=== PATIENT | male | born 1970 | race Caucasian/White ===

== ENCOUNTER 2018-09-28 18:15 | Outpatient (CLI) | payer MEDICARE, OTHER | END 2018-09-28 18:16 | disposition home or self-care (01) | LOC: DI 18:15 | PROVIDERS: ATTEND General Practice | DX: M54.12 Radiculopathy, cervical region (principal); Z53.9 Procedure and treatment not carried out, unspecified reason ==

== ENCOUNTER 2018-09-29 18:13 | Outpatient (CLI) | payer MEDICARE, OTHER ==
--- NOTE | 2018-09-29 22:04 | MRI Report ---
Reason: RADICULOPATHY, CERVICAL REGION Procedure Date: 09/29/2018 Accession Number: [id number] / [id number] Procedure: MRI - Cervical Spine W/O CPT Code: FULL RESULT: EXAM: MRI CERVICAL SPINE WITHOUT CONTRAST EXAM DATE: 09/29/2018 07:10 PM. CLINICAL HISTORY: Radiculopathy, cervical region. COMPARISONS: None. TECHNIQUE: Multiplanar, multisequence T1-weighted and fluid-sensitive sequences of the cervical spine without contrast. Other: None. FINDINGS: There is a 1 mm retrolisthesis of C3 on C4. There is desiccation of the disk spaces throughout the cervical spine. There are normal signal intensities demonstrated throughout the cervical spinal cord. There is a moderate decrease in the intervertebral disk space height at C4-C5, C5-C6, C6-C7 and C7-T1. There are Schmorl's nodes in the superior endplate of C7 and T1 and C6. There is T2 hyperintensity demonstrated at the C7 spinous process tip. The supraspinous ligament appears to be focally bowed at this area with surrounding edema. This may reflect either inflammation of the ligament versus possibly direct injury to the ligament at this level. Recommend correlation for any recent trauma. On the axial images there does not appear to be evidence of an associated fracture. There is mild Modic type I endplate degenerative change within the C3-C4 through C7-T1 endplates. C2-C3: There is mild to moderate bilateral facet arthropathy. There is moderate narrowing of the right neural foramen. There is asymmetric enlargement of the left foraminal space which appears to exhibit a T2 hyperintense mass extending through the left foraminal space measuring 9 x 13 x 15 mm (26, 701 and 2, 501). This is suspicious for a schwannoma. This can be further characterized with postcontrast T1-weighted images. C3-C4: There is minimal left facet arthropathy. There is a small disk osteophyte complex abutting the sac producing a mild central canal stenosis. The uncovertebral hypertrophy produces moderate right and moderate to severe left foraminal stenosis. Recommend correlation for left C4 radicular symptoms. C4-C5: There is a broad-based disk osteophyte complex abutting the sac. There is mild ligamentum flavum hypertrophy. There is a moderate central canal stenosis. The uncovertebral hypertrophy produces severe bilateral foraminal stenoses. Recommend correlation for C5 radiculopathies. The facets are normal. C5-C6: There is a broad-based disk osteophyte complex abutting the sac. There is a mild central canal stenosis. The uncovertebral hypertrophy produces moderate to severe left and mild to moderate right foraminal stenosis. Recommend correlation for left C6 radiculopathy. C6-C7: There is a small disk osteophyte complex abutting the sac producing a mild central canal stenosis. There is mild to moderate left and mild right foraminal stenosis. The facets are normal. C7-T1: There is a broad-based disk osteophyte complex abutting the sac producing a mild central canal stenosis. The uncovertebral hypertrophy produces moderate to severe left and moderate right foraminal stenoses. Recommend correlation for left C8 radiculopathy. The facets are normal. IMPRESSION: 1. There is a T2 hyperintense mass producing enlargement of the left foraminal space at C2-C3. It measures 9 x 13 x 15 mm and is suspicious for a schwannoma. Recommend further characterization with postcontrast T1-weighted images. 2. There is T2 hyperintensity surrounding the tip of the C7 spinous process as well as just beneath the supraspinous ligament. This may reflect focal detachment and therefore injury of the supraspinous ligament versus associated focal inflammatory changes. Recommend correlation for any history of recent trauma. Overall there does not appear to be evidence of focal fracture of the C7 spinous process. Recommend correlation with clinical symptoms. 3. There is a mild central canal stenosis from a small disk osteophyte complex at C3-C4. There is moderate to severe left foraminal stenosis. Recommend correlation for left C4 radiculopathy. 4. There is a broad-based disk osteophyte complex abutting the sac. There is a moderate central canal stenosis at C4-C5. There are severe bilateral foraminal stenoses which may produce C5 radiculopathies. 5. There is a mild central canal stenosis from a broad-based disk osteophyte complex at C5-C6. There is a moderate to severe degree of left foraminal stenosis which may produce a left C6 radiculopathy. 6. There is a mild central canal stenosis at C6-C7 from a small disk osteophyte complex abutting the sac. 7. There is a mild central canal stenosis from a broad-based disk osteophyte complex at C7-T1. There is a moderate to severe left foraminal stenosis. Recommend correlation for left C8 radiculopathy.
== END 2018-09-29 18:14 | disposition home or self-care (01) ==
LOC: DI 18:13
PROVIDERS: ATTEND General Practice
DX: M54.12 Radiculopathy, cervical region (principal); M50.321 Other cervical disc degeneration at C4-C5 level; M48.02 Spinal stenosis, cervical region; M47.9 Spondylosis, unspecified; M43.12 Spondylolisthesis, cervical region; M48.8X2 Other specified spondylopathies, cervical region
CPT/HCPCS: 72141

== ENCOUNTER 2020-03-31 17:40 | Emergency (ER) | payer OTHER, MEDICARE ==
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
[2020-03-31 17:56] VITALS: BP 144/73
--- NOTE | 2020-03-31 18:51 | XRAY Report ---
PROCEDURE: Cervical Spine Complete INDICATIONS: neck pain TECHNIQUE: 5 view(s) of the cervical spine were acquired. COMPARISON: None. FINDINGS: Bones: No fractures or dislocations to the C7 level. The lateral masses of C1 appear intact on the odontoid view. No suspicious bony lesions. Loss of normal cervical lordosis. Multilevel disc space narrowing and endplate osteophyte formation. Facet hypertrophy throughout the mid and lower cervical spine. Soft tissues: No prevertebral soft tissue swelling. IMPRESSION: Multilevel degenerative disc and facet disease. No acute fracture. No osseous lesion. If symptoms and/or clinical suspicion for pathology continue, further assessment with repeat plain film s, or advanced imaging (e.g., CT, MRI, or bone scan) is recommended for further assessment. Reviewed by: Fadi Mariano MD on 03/31/2020 6:50 PM PDT Approved by: Fadi Mariano MD on 03/31/2020 6:50 PM PDT Station ID: [id number]
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
== END 2020-03-31 19:08 | disposition home or self-care (01) ==
LOC: ED 17:40
DX: S16.1XXA Strain of muscle, fascia and tendon at neck level, initial encounter (principal); S39.012A Strain of muscle, fascia and tendon of lower back, initial encounter; R07.9 Chest pain, unspecified; V53.5XXA Driver of pick-up truck or van injured in collision with car, pick-up truck or van in traffic accident, initial encounter; Y92.410 Unspecified street and highway as the place of occurrence of the external cause; M50.30 Other cervical disc degeneration, unspecified cervical region
CPT/HCPCS: 71046; 72050; 99283

== ENCOUNTER 2022-07-16 12:18 | Outpatient (CLI) | payer MEDICARE, OTHER ==
--- NOTE | 2022-07-16 16:39 | Ultrasound Report ---
PROCEDURE: Bladder INDICATIONS: URGENCY OF URINATION TECHNIQUE: Real-time scanning was performed of the bladder, with image documentation. COMPARISON: None FINDINGS: Bladder: Pre-void bladder volume is 27 mL. Post-void residual is 3 mL. Pre-void images demonstrate no intraluminal masses or stones. On pre-void images, bilateral ureteral jets are noted with color Doppler interrogation. (Of note, ureteral jets may not be detectable in up to 25% of cases due to in sufficient differences in specific gravity between ureteral and bladder urine). Miscellaneous: No free pelvic fluid. 18 mm cyst within the prostate. IMPRESSION: Suboptimally distended urinary bladder. Reviewed by: Fadi Mariano MD on 07/16/2022 4:38 PM PST Approved by: Fadi Mariano MD on 07/16/2022 4:38 PM PST Station ID: [id number]
== END 2022-07-16 12:19 | disposition home or self-care (01) ==
LOC: DI 12:18
PROVIDERS: ATTEND Internal Medicine
DX: R39.15 Urgency of urination (principal)